=== PATIENT | female | born 1940 | race Caucasian/White ===

== ENCOUNTER → 2020-06-07 | Outpatient (CLI) | payer OTHER, MEDICARE | LOC: RAD 12:25 | DX: M47.816 Spondylosis without myelopathy or radiculopathy, lumbar region (principal); M43.16 Spondylolisthesis, lumbar region; M96.1 Postlaminectomy syndrome, not elsewhere classified; M25.78 Osteophyte, vertebrae ==

== ENCOUNTER → 2020-06-26 | Outpatient (CLI) | payer OTHER, MEDICARE ==
[2020-06-26 12:57] LABS: CREATININE 1.1 mg/dL (0.6-1.0)
== END ==
LOC: MRI 11:59
DX: M51.25 Other intervertebral disc displacement, thoracolumbar region (principal); M47.817 Spondylosis without myelopathy or radiculopathy, lumbosacral region; M46.1 Sacroiliitis, not elsewhere classified; M96.1 Postlaminectomy syndrome, not elsewhere classified; M43.16 Spondylolisthesis, lumbar region; M25.78 Osteophyte, vertebrae; M48.061 Spinal stenosis, lumbar region without neurogenic claudication; M47.816 Spondylosis without myelopathy or radiculopathy, lumbar region; M51.27 Other intervertebral disc displacement, lumbosacral region

== ENCOUNTER → 2020-08-02 | Outpatient (CLI) | payer OTHER, MEDICARE ==
[~2020-08-02] MED LIST: CELEBREX 200 M200 M1 PO; FLONASE 0.05%50 MCG NARES; GLUCOPHAGE1000 MG PO; KRILL OIL 1,001 EACH PO; LASIX 20 MG TAB20 MG PO; LIPITOR80 MG PO; METOPROLOL TART25 MG PO; MULTIVITAMINS1 EAC7 PO; NEURONTIN300 MG PO; PLAVIX 75 MG TA75 M1 PO; TART CHERRY CA1 EACH PO; VITAMIN D-40010 MCG PO; VITAMIN D350 MC3 PO; ZESTRIL20 MG PO
== END ==
LOC: LAB 08-01 12:26
DX: U07.1 COVID-19 (principal)

== ENCOUNTER 2020-08-07 09:22 | Inpatient (IN) | payer OTHER, MEDICARE ==
[2020-08-02 12:52] LABS: ABSOLUTE NEUTROPHILS 2.5 thou/uL (1.4-8.2); BASOPHILS 0.3 % (0.0-2.0); EOSINOPHILS 0.8 % (0.0-3.0); HEMATOCRIT 40.6 % (37.0-47.0); HEMOGLOBIN 13.2 gm/dL (12.0-15.0); LYMPHOCYTES 35.5 % (24.0-44.0); MCH 30.8 pg (26.0-34.0); MCHC 32.5 g/dL (28.0-37.0); MONOCYTES 8.6 % (1.0-8.0); PLATELET COUNT 178 thou/uL (150-400); POLYS 54.8 % (36.0-66.0); RBC 4.27 mil/uL (4.20-5.00); RDW 13.8 % (10.5-14.5); WBC 4.6 thou/uL (4.0-11.0)
[2020-08-02 12:56] LABS: URINE BILIRUBIN NEGATIVE (Negative); URINE BLOOD NEGATIVE (Negative); URINE CLARITY CLEAR; URINE COLOR YELLOW; URINE GLUCOSE-RANDOM* NEGATIVE (Negative); URINE KETONES NEGATIVE (Negative); URINE LEUKOCYTES-REFLEX NEGATIVE (Negative); URINE NITRITE-REFLEX NEGATIVE (Negative); URINE PROTEIN (DIPSTICK) NEGATIVE (Negative); URINE SPECIFIC GRAVITY 1.015 (1.005-1.035); URINE UROBILINOGEN 0.2 E.U./dl (0.2-1.0)
[2020-08-02 13:06] LABS: ALBUMIN 3.6 g/dL (3.4-5.0); CALCIUM 8.8 mg/dL (8.5-10.1); CREATININE 1.1 mg/dL (0.6-1.0); MAGNESIUM 1.7 mg/dL (1.8-2.4); POTASSIUM 4.1 mmol/L (3.5-5.1); TOTAL BILIRUBIN 0.7 mg/dL (0.2-1.0); TOTAL PROTEIN 6.2 g/dL (6.4-8.2)
[2020-08-02 13:19] LABS: PROTIME 10.4 Seconds (9.3-11.4)
[2020-08-03 03:06] LABS: GLYCOHEMOGLOBIN (HGB A1C) 6.5 % (4.8-5.6)
[~2020-08-07] VITALS: Ht 152.4 cm; Wt 92.5 kg
[2020-08-23] MEDS ORDERED: ADVIL200 M1 PO (09:04)
[2020-08-28 07:14] VITALS: BP 179/78
[2020-08-28 14:14] VITALS: BP 168/62
[2020-08-28 15:15] VITALS: BP 168/62
[2020-08-28 15:18] VITALS: BP 162/77
--- NOTE | 2020-08-28 15:52 | NUR ---
PT ADMITTED TO THE FLOOR FROM THE OR AT 1405. A&Ox4. CHAIR TRIMMER PUMP STARTED AND VERIFIDE. ON BEDREST UNTIL PT EVALUATION TOMORROW. HORTON CATHETER IN PLACE. HEMOVAC IN PLACE AND DRAINING. IN THE ROOM. DRESSING DRY AND INTACT. GISELA HOSES/SCD'S IN PLACE. CARB CONTROL DIET. PT TOLERATING CLEAR LIQUIDS WELL ADVANCED TO CARB CONTROL, LACTOSE INTOLERENT. IV PATENT WITH NO REDNESS OR EDEMA, FLUIDS INFUSING. VITALS STABLE. CAPNOOGRAPHY IN PLACE. FALL PROTOCOL IN PLACE. CALL LIGHT IN REACH. WILL CONTINUE TO MONITOR.
[2020-08-28 19:26] VITALS: BP 118/56
[2020-08-29 00:10] VITALS: BP 109/47
--- NOTE | 2020-08-29 02:15 | NUR ---
ASSESSED AT START OF SHIFT 1899. PT A&OX4. STATED PAIN 01/16. GUEST EXPERIENCE MANAGER PUMP INTACT AND INFUSING. DENIES N/V. ON A CAPNEA MONITOR AND 2L OF O2. EVENING MEDS GIVEN AND PT CECE IT WELL. SCD'S AND TEDHOSE ON BLE. IV INTACT WITH IVF. FOLLEY IN PLACE. WILL CONT WITH POC TILL EOS. FALL PREC MAINTAINED.
[2020-08-29 05:27] LABS: ABSOLUTE NEUTROPHILS 8.4 thou/uL (1.4-8.2); BASOPHILS 0.2 % (0.0-2.0); HEMATOCRIT 30.5 % (37.0-47.0); HEMOGLOBIN 9.9 gm/dL (12.0-15.0); LYMPHOCYTES 14.1 % (24.0-44.0); MCH 30.7 pg (26.0-34.0); MCHC 32.3 g/dL (28.0-37.0); MONOCYTES 9.4 % (1.0-8.0); PLATELET COUNT 203 thou/uL (150-400); POLYS 76.3 % (36.0-66.0); RBC 3.21 mil/uL (4.20-5.00); RDW 13.6 % (10.5-14.5)
[2020-08-29 05:53] LABS: CALCIUM 8.2 mg/dL (8.5-10.1); CREATININE 1.2 mg/dL (0.6-1.0); MAGNESIUM 1.6 mg/dL (1.8-2.4); POTASSIUM 4.9 mmol/L (3.5-5.1)
[2020-08-29 07:32] VITALS: BP 127/42
--- NOTE | 2020-08-29 09:21 | NUR ---
ASSESSMENT: CM REVIEWED CHART AND SPOKE WITH PATIENT AND HER . PT IS ALERT AND ORIENTED X4. PT REPORTS LIVING IN A HOUSE WITH HER . PT REPORTS HAVING 3 STEPS WITH HANDRAILS TO ENTER THE HOME AND NO STEPS ONCE INSIDE. PT REPORTS BEING FULLY INDEPENDENT WITH ADLS AND AMBULATION. PT REPORTS HAVING A CANE AND WALKER AT HOME FROM PAST SURGERIES. PT REPORTS THAT SHE WANTS TO USE [facility] AT DISCHARGE. CM FAXED REFERRAL TO [facility]. PT IS TO WORK WITH PT/OT TODAY. CM WILL CONTINUE TO FOLLOW TO ASSIST NEEDED.
[2020-08-29 09:52] VITALS: BP 127/42
--- NOTE | 2020-08-29 10:08 | NUR ---
PT CARE ASSUMED AT 0700. A&Ox4. PT TOLERATING PAIN WEL WITH PAIN MEDICATION ON BOARD. SHE HAS REQUESTED A REFERAL FOR HOME HEALTH AND DOES NOT NEED A WALKER BECAUSE SHE HAS ONE AT HOME. DRESSING DRY AND INTACT. HEMOVAC IN PLACE AND DRAINING WELL. ACHS WITH MODERATE SLIDING SCALE. HORTON WILL BE REMOVED AFTER PT WALKS WITH PATIENT THIS AM. HAS SCRIPTS ALREADY. IV PATENT WITH NO REDNESS OR EDEMA. SALINE LOCKED. RT ON BOARD. PT ON ROOM AIR NOW. PT HAS A REDISH AREA IN LEFT GROIN, INTA APPLIED. THIGH HIGH TEDHOSES ARE CUTTING INTO PT THIGHS, EMANUEL HAS ORDERED THEM TO BE CHANGED TO KNEE HIGHS. FALL PROTOCOL IN PLACE. CALL LIGHT IN REACH. INSENTIVE SPIROMETER BEING USED BY PT. WILL CONTINUE TO MONITOR. SCD'S IN PLACE.
[2020-08-29 16:55] VITALS: BP 112/54
[2020-08-29 19:47] VITALS: BP 117/40
[2020-08-30 04:02] VITALS: BP 122/46
--- NOTE | 2020-08-30 04:28 | NUR ---
PT IS ALERT AND PLEASANT. SHE WALKS WELL TO THE BATHROOM. LOWER BACK DRSG IS C/D/I. HEMOVAC WITH >100CC OUTPUT.TMAX OF 100.5. PT IS USING I/S W/A. SHE DENIES SOA OR COUGH. DENIES SORE THROAT. REPORTS PAIN OF ABOUT 2-3 TO LOWER BACK BUT MOSTLY WITH MOVT.VOIDING OKAY. WILL CONTINUE WITH POC TILL EOS.
[2020-08-30 06:14] LABS: ABSOLUTE NEUTROPHILS 4.8 thou/uL (1.4-8.2); BASOPHILS 0.2 % (0.0-2.0); EOSINOPHILS 2.6 % (0.0-3.0); HEMATOCRIT 29.1 % (37.0-47.0); HEMOGLOBIN 9.5 gm/dL (12.0-15.0); LYMPHOCYTES 26.8 % (24.0-44.0); MCH 31.3 pg (26.0-34.0); MCHC 32.8 g/dL (28.0-37.0); MCV 95.3 fL (80.0-100.0); MONOCYTES 8.9 % (1.0-8.0); PLATELET COUNT 164 thou/uL (150-400); POLYS 61.5 % (36.0-66.0); RBC 3.05 mil/uL (4.20-5.00); RDW 13.3 % (10.5-14.5); WBC 7.8 thou/uL (4.0-11.0)
[2020-08-30 06:40] LABS: CALCIUM 8.6 mg/dL (8.5-10.1); CREATININE 1.2 mg/dL (0.6-1.0); POTASSIUM 4.3 mmol/L (3.5-5.1)
[2020-08-30 08:21] VITALS: BP 113/49
--- NOTE | 2020-08-30 14:09 | NUR ---
PT CARE ASSUMED AT 0700. A&Ox4. PT IN PAIN BUT WELL CONTROLLED WELL WITH PAIN MEDICATION. PT UP TO THE BATHROOM WITH STANDBY. AT BEDSIDE. HEMOVAC REMOVED WITH 50CC OUTPUT. TEMPERATURE RESOLVED TO 98.6. TEDS/SCD'S IN PLACE. IS IN ROOM. ACHS WITH COVERAGE. SLEEPAPNEA WITH NO CPAP ON BOARD. FALL PROTOCOL IN PLACE. CALL LIGHT IN REACH. WILL CONTINUE TO MONITOR. PT CLEARED TO DC FROM ORTHO.
[2020-08-30] MEDS ORDERED: MIRALAX17 GM PO (14:32)
[2020-08-30] MEDS ORDERED: COLACE100 MG PO (14:32)
[2020-08-30] MEDS ORDERED: ROBAXIN 750 MG750 MG PO (14:33)
[2020-08-30] MEDS ORDERED: NORCO 10-325 T1 EACH PO (14:33)
[2020-08-30 15:09] VITALS: BP 127/42
--- NOTE | 2020-08-30 15:27 | NUR ---
ON-GOING ASSESSMENT: CM REVIEWED CHART AND SPOKE WITH PHYSICIAN. PLANS ARE FOR PT TO DISCHARGE HOME TODAY WITH HOME HEALTH ([facility]). CM FAXED DISCHARGE ORDERS TO [facility] AND COFIRMED THEY RECEIVED IT. PT HAS NO FURTHER NEEDS FROM CM PRIOR TO DISCHARGE.
[2020-08-30 16:17] LABS: URINE BILIRUBIN NEGATIVE (Negative); URINE BLOOD NEGATIVE (Negative); URINE CLARITY SL CLOUDY; URINE COLOR YELLOW; URINE GLUCOSE-RANDOM* NEGATIVE (Negative); URINE KETONES NEGATIVE (Negative); URINE NITRITE-REFLEX NEGATIVE (Negative); URINE PROTEIN (DIPSTICK) NEGATIVE (Negative); URINE UROBILINOGEN 0.2 E.U./dl (0.2-1.0)
[2020-08-30 16:19] LABS: URINE LEUKOCYTES-REFLEX 2+ (Negative)
[2020-08-30] MEDS ORDERED: CEFUROXIME500 MG PO (16:23)
[2020-08-30 16:26] LABS: SQUAMOUS 4-10 Moderate /LPF (0-3); URINE RBC 0-2 Rare /HPF (0-2); URINE WBC-REFLEX >25 Many /HPF (0-5)
[2020-08-30 16:27] LABS: BACTERIA-REFLEX 1-9 Few /HPF (None Seen); CRYSTALS None Seen /LPF (None Seen); HYALINE CASTS 0-3 Few /LPF (None Seen)
--- NOTE | 2020-08-31 09:29 | O ---
[facility] [place] [address] OPERATIVE REPORT Name: PADMINI GONZALEZ Room #: 434-P [facility] IN M.R.#: [id number] Admission: 08/28/20 Attend Phys: Melchor Truong MD Discharge: 08/30/20 Date of : 44 Report #: [id number] THIS REPORT FOR: cc: Kvng Stern MD,Melchor Stover MD, MD ~ CC: Melchor Stern DATE OF SERVICE: 08/28/2020 PREPROCEDURAL DIAGNOSES: L2-L4 degenerative disk disease, recurrent spinal stenosis, L2-S1 neural foraminal stenosis, spondylolisthesis L2-L3, spondylolisthesis L3-L4, instability L2-L3, multilevel lumbar radiculopathy, previous decompression L1 to sacrum. The patient showing malalignment and instability in the upper lumbar levels and recurrent spinal stenosis in the lower levels both central and neural foraminal at L2-L3, L3-L4 and neural foraminal stenosis L4-L5 and L5-S1. The patient's proved refractory to multimodality conservative management and requested we proceed with operative intervention. POSTPROCEDURAL DIAGNOSES: L2-L4 degenerative disk disease, recurrent spinal stenosis, L2-S1 neural foraminal stenosis, spondylolisthesis L2-L3, spondylolisthesis L3-L4, instability L2-L3, multilevel lumbar radiculopathy, previous decompression L1 to sacrum. The patient showing malalignment and instability in the upper lumbar levels and recurrent spinal stenosis in the lower levels both central and neural foraminal at L2-L3, L3-L4 and neural foraminal stenosis L4-L5 and L5-S1. The patient's proved refractory to multimodality conservative management and requested we proceed with operative intervention. PROCEDURE: Posterior segmental instrumentation L2-L4, posterolateral fusion L2-L3 and L3-L4. Redo bilateral laminectomy with partial facetectomy and neural foraminotomy of L1. Redo bilateral laminectomy with partial facetectomy and neural foraminotomy of L2. Redo bilateral laminectomy with partial facetectomy and neural foraminotomy L3. Redo bilateral laminectomy with partial facetectomy and neural foraminotomy L4. Redo bilateral laminectomy with partial facetectomy and neural foraminotomy L5. Redo bilateral laminectomy with partial facetectomy and neural foraminotomy S1. Autograft and allograft. SURGEON: Melchor Truong MD CENTRAL SUPPLY SUPERVISOR SURGEON: LAURY Escobar ANESTHESIA: General via endotracheal tube. [address] [address] OPERATIVE REPORT Name: PADMINI GONZALEZ Room #: 434-P [facility] IN M.R.#: [id number] Admission: 08/28/20 Attend Phys: Melchor Truong MD Discharge: 08/30/20 Date of : 44 Report #: [id number] INDICATIONS: The patient has had previous decompression from L1 to the sacrum. She has reaccumulated spinal stenosis, both central and neural foraminal at L1-L2, L2-L3 and L3-L4 and neural foraminal at L4-L5 and L5-S1. The patient having proved refractory to multimodality conservative managements requesting we proceed with operative intervention despite understanding the risks of the surgery to be , DVT, pulmonary embolism, paraplegia, loss of the ability to ambulate, loss of bowel and bladder function, loss of sexual function, possibility of bleeding, bleeding requiring transfusion, transfusion attendant risks of AIDS and hepatitis infection, instability, the need for revision, prolonged hospital stay, dural leak, spinal headache and again she requests we proceed. DESCRIPTION OF PROCEDURE: She was brought to the operating room, administered general anesthesia via endotracheal tube. Lower extremities were treated with GISELA hose and intermittent compression stockings. She was positioned on the Allen table in the prone position with all bony prominences padded appropriately. Care was taken to ensure the shoulders not abducted more than 90 degrees, the elbows flexed more than 90 degrees. There was no undue pressure on the cubital or carpal canals. The area of the anterior superior iliac spine was well padded to protect the lateral femoral cutaneous nerve. Hips and knees were well padded and there was no pressure on the dorsum of the feet. The patient's low back was defatted with alcohol, visualized under fluoroscopy and the pedicles of L1 through S1 were marked on the patient's back for surgical reference. This was largely through her previous multiple operated incision. I made the decision after sterile prep and drape, an infiltration of the skin with 0.5% Marcaine, 1:200,000 epinephrine to ellipse that incision and all the previous scar to try and help facilitate wound healing in this rather large lady with multiple comorbidities. So, the incision was ellipsed and the incision revised. We then obtained the deep fascial layer and the previous permanent sutures were incised with cautery and the dissection was carefully carried down to the S1 spinous process and the L1 spinous process. We then worked from cephalad to caudad carefully dissecting the intervening L1, L2, L3, L4, L5 and S1 levels of previous decompression. It was tedious. The patient was significantly large and it took over an hour just to expose the lateral borders of the previous decompression. We then exposed the transverse processes of L2, L3 and L4 after placing a clamp on what we believed to be the partial remnant of L1 improving and under fluoroscopy with the transverse processes and lateral facets exposed noting that our insertion points were significantly distorted by the adaptive changes in horrible degenerative change of these levels. We were eventually referring to our x-ray, fluoroscopy view, which had been obtained with the clamps perpendicular to the floor gave us a relative pedicle directions at L2, L3 and L4. We decorticated the base of the transverse process in line with the lateral facet, inserted our pedicle probe and drilled to a depth of 40 mm in the direction dictated by the previously obtained x-ray. We withdrew the pedicle probe, palpated with a ball tip probe to ensure cortical integrity of the pedicle and then inserted bone wax and a metallic marker and this was [facility] [address] [place] [address] OPERATIVE REPORT Name: PADMINI GONZALEZ Room #: 434-P [facility] IN M.R.#: [id number] Admission: 08/28/20 Attend Phys: Melchor Truong MD Discharge: 08/30/20 Date of : 44 Report #: [id number] repeated bilaterally at L2, L3 and L4. We then obtained, AP and lateral fluoroscopy views, which showed excellent position of all of our markers. They were well placed within the pedicle and we chose 50 mm length screws based on the penetration of the markers at 40 mm. We felt the vertebral bodies could accommodate an extra 10 mm. So, we then tapped the oversize load pilot escort holes to accommodate a 6.5 mm screw, but before insertion of the screw, we palpated yet again to ensure cortical integrity of the pedicle and then decorticated posterolaterally and performed a posterolateral fusion from L2-L3 and L3-L4. This was done first on the right, then the screws were inserted. Rods were measured, cut and contoured. We tried to reduce the spondylolisthesis at the L2-L3 and L3-L4 level. With the spondylolisthesis reduced and the rods locked with the locking caps torqued to appropriate tightness on the right, we moved to the left and performed exactly the same procedure yet again. We tapped the holes and palpated to ensure cortical integrity of the pedicle. We decorticated posterolaterally. We placed synthetic bone that had been reconstituted with the patient's own vertebral body blood during the oversize load pilot escort hole formation. The blood had been saved with a Lukens trap and reconstituted the synthetic bone, which was then packed to achieve an L2-L3 and L3-L4 fusion before insertion of the screws. The screws were then used to lock the michelle and a further reducing the spondylolisthesis and malalignment. With all fittings torqued to appropriate tightness, we checked a final AP and lateral fluoroscopy view and it showed superb position of all of our instrumentation. We then began on the right at the L1 level and used micro curettes to separate the scarred dura from the undersurface of the lamina or ligament whichever was the offending structure and cleared the lateral recess by removing the ligament and performing partial facetectomies at the right L1, L2, L3, L4, L5 and S1 levels. We then performed neural foraminal decompressions at L1-L2, L2-L3, L3-L4, L4-L5 and L5-S1, decompressing the L1 through S1 nerve roots. With the neural foraminal decompressions complete and lateral recesses completely decompressed, we moved to the left side and in redo fashion again performed decompression using micro curettes under loupe magnification and headlight illumination to separate the scarred dura from the undersurface of the lamina facet or ligament, whichever was the case and dissected with a Kerrison, removing bone until we were lateral to the dural sac. We then performed the neural foraminal decompressions at the L1, L2, L3, L4, L5 and S1 nerve roots until all nerve roots probed completely free. When complete, we had a wide central decompression that had been redone from L1 to the sacrum. We had neural foraminal decompressions at every root level and free passage of probes indicating decompression was complete. We copiously irrigated with a liter of antibiotic-containing solution, placed pledgets thrombin-soaked Gelfoam over the spinal canal. We placed a deep drain. We placed a transverse connector and torqued all fittings to appropriate tightness between the L2 and L3 screws. With the transverse connector in place and the wound irrigated and thrombin-soaked Gelfoam placed over the spinal sac where there was naked dura. We then closed the deep fascial layer with 0 Ethibond in [id number] interrupted fashion after obtaining meticulous hemostasis, closed deep fascia with 0 Vicryl, superficial subQ with 2-0 Vicryl, [address] [address] OPERATIVE REPORT Name: LISAPADMINI Room #: 434-P [facility] IN .R.#: [id number] Admission: 08/28/20 Attend Phys: Melchor Truong MD Discharge: 08/30/20 Date of : 44 Report #: [id number] skin with stainless steel kings, dressed it with Xeroform, sterile dressing, sponges a bioclusive. The patient tolerated the procedure well. There were no technical misadventures. Final blood loss was 100 mL. No specimens. Urine output was 150 mL and the patient was physiologically stable. There were no technical misadventures and she was being transported to the recovery room for closer neurovascular observation, discharge to the floor once stable to continue prophylactic antibiotic and serial neurovascular exams. <ELECTRONICALLY SIGNED> By: Melchor Truong MD 08/31/20 0929 [id number] Melchor Truong MD /nt
== END 2020-08-30 15:57 | disposition home health service (06) | DRG 460 ==
LOC: PRE 09:22 → TBA 08-28 06:08 → 4S 08-28 06:08 → PRE 08-28 13:08 → 4S 08-28 13:57
PROVIDERS: Nurse Practitioner
PROC: 01NB0ZZ Release Lumbar Nerve, Open Approach (ICD-10-PCS; principal; 2020-08-28)
PROC: 0SG3071 Fusion of Lumbosacral Joint with Autologous Tissue Substitute, Posterior Approach, Posterior Column, Open Approach (ICD-10-PCS; principal; 2020-08-28)
PROC: 00NY0ZZ Release Lumbar Spinal Cord, Open Approach (ICD-10-PCS; principal; 2020-08-28)
PROC: 01NR0ZZ Release Sacral Nerve, Open Approach (ICD-10-PCS; principal; 2020-08-28)
DX: M48.07 Spinal stenosis, lumbosacral region (principal); E78.5 Hyperlipidemia, unspecified; Z96.652 Presence of left artificial knee joint; G89.29 Other chronic pain; M54.9 Dorsalgia, unspecified; I12.9 Hypertensive chronic kidney disease with stage 1 through stage 4 chronic kidney disease, or unspecified chronic kidney disease; E11.22 Type 2 diabetes mellitus with diabetic chronic kidney disease; M54.16 Radiculopathy, lumbar region; E11.42 Type 2 diabetes mellitus with diabetic polyneuropathy; N18.30 Chronic kidney disease, stage 3 unspecified; Z88.6 Allergy status to analgesic agent; Z88.8 Allergy status to other drugs, medicaments and biological substances; Z86.73 Personal history of transient ischemic attack (TIA), and cerebral infarction without residual deficits; Z98.42 Cataract extraction status, left eye; Z98.41 Cataract extraction status, right eye
CPT/HCPCS: 10102; 50010; 50101; 50402; 50850; 51412; 51878; 56524; 56529; 58247; 58248; 58251; 5827; 58299; 62110; 62900; 70005

== ENCOUNTER → 2020-09-17 | Outpatient (CLI) | payer OTHER, MEDICARE ==
[~2020-09-17] MED LIST changes: +ADVIL200 M1 PO; +CEFUROXIME500 MG PO; +COLACE100 MG PO; +MIRALAX17 GM PO; +NORCO 10-325 T1 EACH PO; +ROBAXIN 750 MG750 MG PO
== END ==
LOC: RAD 08:41
DX: M48.07 Spinal stenosis, lumbosacral region (principal); M43.26 Fusion of spine, lumbar region; M43.16 Spondylolisthesis, lumbar region; M25.78 Osteophyte, vertebrae; M96.1 Postlaminectomy syndrome, not elsewhere classified; Z98.890 Other specified postprocedural states

== ENCOUNTER → 2020-11-05 | Outpatient (CLI) | payer OTHER, MEDICARE | LOC: RAD 12:30 | PROVIDERS: ATTEND Physician Assistant | DX: M43.20 Fusion of spine, site unspecified (principal); M47.814 Spondylosis without myelopathy or radiculopathy, thoracic region; M47.816 Spondylosis without myelopathy or radiculopathy, lumbar region ==